=== PATIENT | female | born 1950 | race Caucasian/White ===

== ENCOUNTER 2023-11-08 12:46 | Emergency (ER) | payer OTHER, SELFPAY ==
[2023-11-08 12:50] VITALS: BP 146/78; BMI 35.7
[2023-11-08 13:01] VITALS: BP 135/84
[2023-11-08] MEDS: TYLENOL 1000 MG PO (13:16)
[2023-11-08] MEDS: ADACEL 0.5 ML IM (13:17)
--- NOTE | 2023-11-08 13:21 | ED.GENMED ---
History of Present Illness
General
Chief Complaint: Fall
Source: patient
Time Seen by Provider: 11/08/23 13:01
Travel History
Have you had any contact with someone who has COVID-19?: No
Do you have any symptoms of coronavirus? Fever > 100 degrees, chills, cough, shortness of breath, sore throat, loss of taste or smell, muscle aches, or headache?: No
History of Present Illness
History of Present Illness:
73-year-old female with past medical history of hypothyroidism presenting to the emergency department after she was at the local grocery store and excellently tripped over a pallet [place] injuring her left shoulder and right middle finger. Patient
states the left shoulder is what is on her the most although she does note that she is unable to range of motion the right middle finger. She denies any head injury, loss consciousness, vomiting or any other extremity related concerns. She denies
any use of anticoagulants. No other concerns at this time.
Past History
Past History
ED Past Medical History: Hypothyroidism
ED Past Surgical History: Gynecological and Orthopedic
Social History
Tobacco: Non-smoker
Alcohol: Occasional
Drug: None
Personal:
Living: with family
Review of Systems
Review of Systems
All Other Systems: ROS reviewed and negative except as documented in HPI and ROS
Phy Exam
Physical Exam
Physical Exam:
GENERAL: Alert , in no apparent distress
EYE: conjunctiva clear
Head: Normocephalic atraumatic
NECK: Supple,
ENT: mmm.
LUNGS: no acute respiratory distress
NEUROLOGICAL: Alert and oriented
SKIN: Warm and dry, superficial skin tears over the right middle finger and dorsal surface of the hand
MUSCULOSKELETAL: Right upper extremity/hand: The middle finger is held at forced flexion and unable to extend at the level of the MCP. She is also unable to extend at the PIP or DIP. Sensation grossly intact to light touch although she does note a
little bit of diminished sensation along the palmar surface of the right finger. There is no pain with palpation or with passive movement of the finger. Left upper extremity/shoulder: No obvious deformity but there is some tenderness over the
proximal humeral head. Patient does allow for some range of motion but this does cause discomfort. No breaks in the skin. Remainder of extremities within normal limits and has normal range of motion and sensation.
PSYCH: Normal and appropriate interaction.
Scores
Heart Failure Risk
Heart Failure Risk Score: Not Applicable
Heart Score for Chest Pain Patients
STEMI patient?: Not applicable
Withdrawal Assessment of Alcohol
Withdrawal Assessment Completed?: Not applicable
Course
Orders/Labs/Results
Orders:
Orders
11/08/23 13:08
Acetaminophen [Tylenol] 1,000 mg PO NOW STA
Tetanus/Diphth/Acelpertussis [Adacel] 0.5 ml IM .ONCE ONE
CR Hand - Right Min 3 Views Urgent
Comment:
Reason For Exam: right middle finger injury, suspected tendon lac
CR Shoulder, Trauma - Left Urgent
Comment:
Reason For Exam: fall, pain
11/08/23 14:20
Splints/Slings/Crut- Treatment ONCE
Location: Right
Type of Splint: Volar
11/08/23 14:21
Sling Left-Treatment ONCE
Vital Signs
Initial and Last Documented VS:
Initial Vital Signs
Temp Pulse Resp BP Pulse Ox
97.6 F 81 20 146/78 96
11/08/23 12:50 11/08/23 12:50 11/08/23 12:50 11/08/23 12:50 11/08/23 12:50
Last Documented Vital Signs
Temp Pulse Resp BP Pulse Ox
97.6 F 81 20 135/84 97
11/08/23 12:50 11/08/23 12:50 11/08/23 12:50 11/08/23 13:01 03/12/24 13:15
Procedures
Splinting/Sling Placement
Right Volar Wrist:
Pre-splint extermity exam: neurovascular intact
Type of splint: volar
Splint material: other (3in orthoglass)
Splint checked by provider?: Yes
Normal distal neurovascular exam?: Yes
MDM/Problems Addressed
Differential Diagnosis Includes:
Right middle finger extensor tendon rupture, fracture, dislocation, left shoulder contusion, fracture, sprain, rotator cuff injury
MDM/Problems Addressed:
73-year-old male present emergency department for evaluation following an accidental fall. Patient clearly has a extensor tendon laceration of the right middle finger. Will obtain x-ray to rule out fracture. Will also x-ray the left shoulder.
Ice is there could potentially be rotator cuff injury. Will update patient's tetanus as well as provide with some Tylenol for pain relief. Anticipate discharge home.
*Radiology
Radiology exam reviewed: preliminary read by ED provider (No fractures or dislocations. Degenerative changes)
*Pulse Oximetry
Patient hypoxic: no
*Critical Care Note
Total Time (30-74mins, 75-104mins- exclusive of procedures): Not Applicable
Patient Management
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
Escalation/DeEscalation of care consider admission/obs:
Patient's x-ray imaging is unremarkable. She was placed in a volar wrist splint to help hold the middle finger and forced extension. I contacted orthopedic hand surgery who will help follow-up with patient either tomorrow or Tuesday. Patient
advised of this and will follow-up as an outpatient. Aware of return cautions. Otherwise stable for discharge home.
ED Attending Note
-
Portions of this chart may have been created with voice recognition software.� Occasional wrong word or��sound alike� substitutions may have occurred due to the inherent limitations of voice recognition software.
Discharge Plan
Departure
Patient Disposition: Home (Routine Discharge)
Date of Disposition: 11/08/23
Time of Disposition: 14:14
Patient with high blood pressure during this ER visit?: Yes
Discharge Problem:
Laceration of extensor muscle, fascia and tendon of right middle finger at wrist and hand level, initial encounter, Left shoulder pain, Accidental fall
Instructions: Tendon Laceration (DC)
Referrals:
Epi Fallon MD [Active] - (Please call for appointment)
Puma Hale MD [Family Provider] -
Interventions
Interventions:
*Risk Screen - Suicide Last Done: 11/08/23 12:50
*General Assessment Last Done: 11/08/23 12:50
*Neglect/Abuse Screening Last Done: 11/08/23 12:50
ED- Fall Risk Assessment Last Done: 11/08/23 12:50
*ED COVID-19 Vaccine History Last Done: 11/08/23 12:50
ED-Musculoskeletal Assessment Last Done: 11/08/23 12:50
ED- Neurological Assessment Last Done: 11/08/23 12:50
ED-Skin Assessment Last Done: 11/08/23 12:50
== END 2023-11-08 15:05 | disposition home or self-care (01) ==
LOC: EMR 12:46
PROVIDERS: EMERGENCY PHYSICIAN Student in an Organized Health Care Education/Training Program; FAMILY PHYSICIAN Family Medicine
DX: S66.322A Laceration of extensor muscle, fascia and tendon of right middle finger at wrist and hand level, initial encounter (principal); M25.512 Pain in left shoulder; W01.0XXA Fall on same level from slipping, tripping and stumbling without subsequent striking against object, initial encounter; Y92.512 Supermarket, store or market as the place of occurrence of the external cause; Z23 Encounter for immunization; E03.9 Hypothyroidism, unspecified
CPT/HCPCS: 99283; 90471; 73030; 73130; 90715

== ENCOUNTER 2023-11-15 06:29 | Day surgery (SDC) | payer OTHER, SELFPAY ==
[2023-11-15] MEDS: CELEBREX 200 MG PO (11:46)
[2023-11-15] MEDS: TYLENOL 1000 MG PO (11:47)
[2023-11-15] MEDS: NORMOSOL-R 1000 IV (11:47)
[2023-11-15] MEDS: TRANSDERM-SCOP 1 PATCH TRANSDERM (12:11)
[2023-11-15] MEDS: DILAUDID 0.25 MG IV ×4 (13:28→14:30)
== END 2023-11-15 15:52 | disposition home or self-care (01) ==
LOC: SDS 06:29
PROVIDERS: ATTENDING PHYSICIAN Orthopaedic Surgery Hand Surgery
DX: S61.411A Laceration without foreign body of right hand, initial encounter (principal); S66.322A Laceration of extensor muscle, fascia and tendon of right middle finger at wrist and hand level, initial encounter; W19.XXXA Unspecified fall, initial encounter; M25.512 Pain in left shoulder; M79.645 Pain in left finger(s); M67.441 Ganglion, right hand; M19.012 Primary osteoarthritis, left shoulder; M18.12 Unilateral primary osteoarthritis of first carpometacarpal joint, left hand
CPT/HCPCS: 26418; 26160; 20605; 20600; 88304

== ENCOUNTER 2023-11-21 10:09 | Outpatient (RCR) | payer OTHER, SELFPAY | END 2023-11-21 23:59 | disposition home or self-care (01) | LOC: ROT 10:09 | PROVIDERS: ATTENDING PHYSICIAN Orthopaedic Surgery Hand Surgery; FAMILY PHYSICIAN Family Medicine | DX: Z47.89 Encounter for other orthopedic aftercare (principal); S61.411D Laceration without foreign body of right hand, subsequent encounter; Z73.6 Limitation of activities due to disability; X58.XXXA Exposure to other specified factors, initial encounter | CPT/HCPCS: 97760 ==

== ENCOUNTER 2023-11-28 10:51 | Outpatient (RCR) | payer OTHER, SELFPAY | END 2023-11-28 23:59 | disposition home or self-care (01) | LOC: ROT 10:51 | PROVIDERS: ATTENDING PHYSICIAN Orthopaedic Surgery Hand Surgery; FAMILY PHYSICIAN Family Medicine | DX: S61.411D Laceration without foreign body of right hand, subsequent encounter (principal); Z73.6 Limitation of activities due to disability | CPT/HCPCS: 97763 ==

== ENCOUNTER → 2023-12-27 13:07 | Outpatient (REF) | payer OTHER, SELFPAY | LOC: HWWDC 13:07 | PROVIDERS: ATTENDING PHYSICIAN Family Medicine | DX: Z12.31 Encounter for screening mammogram for malignant neoplasm of breast (principal) | CPT/HCPCS: 77063; 77067 ==

== ENCOUNTER → 2024-04-11 06:30 | Day surgery (SDC) | payer OTHER, SELFPAY | LOC: GI 06:30 | PROVIDERS: ATTENDING PHYSICIAN Internal Medicine | DX: Z12.11 Encounter for screening for malignant neoplasm of colon (principal); K57.30 Diverticulosis of large intestine without perforation or abscess without bleeding; K64.4 Residual hemorrhoidal skin tags; D12.3 Benign neoplasm of transverse colon; Z86.010 Personal history of colon polyps | CPT/HCPCS: 45380; 88305 ==

== ENCOUNTER → 2025-03-27 15:14 | Outpatient (REF) | payer OTHER, SELFPAY | LOC: WDC 15:14 | PROVIDERS: ATTENDING PHYSICIAN Family Medicine | DX: Z12.31 Encounter for screening mammogram for malignant neoplasm of breast (principal) | CPT/HCPCS: 77063; 77067 ==

== ENCOUNTER → 2025-04-16 09:20 | Outpatient (REF) | payer OTHER, SELFPAY | LOC: RAD 09:20 | PROVIDERS: ATTENDING PHYSICIAN Family Medicine | DX: Z78.0 Asymptomatic menopausal state (principal) | CPT/HCPCS: 77080 ==